=== PATIENT | female | born 1945 | race Caucasian/White ===

== ENCOUNTER 2021-10-15 17:02 | Outpatient (CLI) | payer MEDICARE, OTHER, SELFPAY ==
--- NOTE | ~2021-10-15 | US_ITS ---
EXAMINATION: US venous doppler LE EXAM DATE: 10/15/2021 17:55 INDICATION: risk of deep vein thrombosis; other specified personal risks . TECHNIQUE: Multiple grayscale, color flow and Doppler images of the lower extremity deep venous syste ms bilaterally were obtained and reviewed. There is no prior study for comparison. FINDINGS: Right side: The right common femoral, femoral and profunda veins demonstrate normal color flow, respi ratory variation, augmentation and compressibility. Compressibility, color flow confirmed within the right popliteal, posterior tibial, peroneal, and greater saphenous veins. Left side: The left common femoral, femoral and profunda veins demonstrate normal color flow, respira tory variation, augmentation and compressibility. Compressibility, color flow confirmed within the l eft popliteal, posterior tibial, peroneal, and greater saphenous veins. IMPRESSION: No lower extremity deep venous thrombosis bilaterally. Reviewed, dictated and finalized at location A. R DEVELOPER
== END 2021-10-15 17:03 | disposition home or self-care (01) ==
PROVIDERS: PCP Internal Medicine; Visit Provider Orthopaedic Surgery
DX: Z91.89 Other specified personal risk factors, not elsewhere classified (principal); R60.0 Localized edema
CPT/HCPCS: 93970

== ENCOUNTER 2022-05-20 19:19 | Emergency (ER) | payer MEDICARE, OTHER, SELFPAY ==
[2022-05-20 19:27] VITALS: BP 150/57; PULSE 72; RESP 20; TEMP 36.4; O2SAT 100
--- NOTE | 2022-05-20 19:40 | ED.URI ---
HPI - URI/Sore Throat General Chief Complaint: Upper Respiratory Infection Stated Complaint: uri Time Seen by Provider: 05/20/22 19:40 Source: patient and RN notes reviewed Mode of arrival: ambulatory Limitations: no limitations History of Present Illness HPI Narrative: 76-year-old female presented for complaint of sinus pressure, headache, and increased shortness of breath over the last day. She endorses a history of COPD but states breathing and wheezing are worse today. Also reports productive cough and fatigue. Endorses episode of vomiting about 2 days ago. She uses a rescue inhaler and has used her albuterol nebulizer today. She denies chest pain, palpitations, nausea, vomiting, fevers or chills. She denies sick contacts. Daily smoker. Hx COPD, DM, HTN, CAD. MD elicited complaint: cough Related Data Allergies Allergy/AdvReac Type Severity Reaction Status Date / Time Penicillins Allergy Mild Unverified 04/08/09 20:42 Review of Systems Review of Systems: CONSTITUTIONAL: denies chills, sweats, fever EYES: Denies visual changes, redness, or discharge ENT: Reports rhinorrhea, congestion, sinus pain CARDIOVASCULAR: Denies chest pain, palpitations, edema RESPIRATORY: Reports cough, post nasal drainage, dyspnea GASTROINTESTINAL: Denies abdominal pain, diarrhea SKIN: Denies rash or itching MUSCULOSKELETAL: denies myalgia Exam Narrative: GENERAL: Ill-appearing, nontoxic EYES: conjunctivae clear ENT: Mucous membranes moist. NECK: Supple. CHEST: Lungs diminished with scattered wheezing throughout all nicolas; No respiratory distress, speaks in full sentences. HEART: Regular rate and rhythm. No murmur heard. SKIN: Warm, dry, no rash. NEURO: Alert and oriented x3. PSYCH: Normal mood and affect Course Course Emergency Course: Patient is aware of diagnosis, understands and agrees to treatment plan. Anticipatory guidance given. Patient agrees to follow-up as directed and is aware of reasons to seek care at the emergency department. Portions of this record may have been created with voice recognition software Level of Care: Express Care Visit Vital Signs Vital signs: Vital Signs Temperature 97.5 F L 05/20/22 19:27 Pulse Rate 72 05/20/22 19:27 Respiratory Rate 20 05/20/22 19:27 Blood Pressure 150/57 H 05/20/22 19:27 Pulse Oximetry 100 05/20/22 19:27 Oxygen Delivery Room Air 05/20/22 19:27 Temperature 97.5 F L 05/20/22 19:27 Pulse Rate 72 05/20/22 19:27 Respiratory Rate 20 05/20/22 19:27 Blood Pressure 150/57 H 05/20/22 19:27 Pulse Oximetry 100 05/20/22 19:27 Oxygen Delivery Room Air 05/20/22 19:27 reviewed MDM - URI/Sore Throat MDM Narrative Medical decision making narrative: covid negative. Result reviewed with patient. Advised supportive measures Reviewed Rx's with pt. and signs/symptoms to go to the ER. Pt is appropriate for outpt treatment and f/u. Differential Diagnosis Differential diagnosis: Likely upper respiratory infection, sinusitis and viral infection Discharge Plan Discharge Clinical Impression: Bronchitis Patient Disposition: Home, Self-Care Condition: Stable Instructions: Acute Bronchitis (ED) Additional Instructions: Your Rapid COVID test was negative today. If you are symptomatic with reason to believe you have COVID-19, there is a high possibility your rapid test may not have detected the virus. You should follow appropriate guidelines regarding quarantine, hand washing, mask wearing, and social distancing You can retest in 1 to 2 days if symptoms persist Acute bronchitis can be contagious because it is usually caused by infection with a virus or bacteria. It is usually for a few days but you can be contagious for up to one week. Take medication as directed Recommend Flonase spray and Zyrtec (or Claritin/Hina) over the counter Cough syrup may cause drowsiness; avoid driving or take it at night time. Tylenol 1000mg every 8 hours a
== END 2022-05-20 20:06 | disposition home or self-care (01) ==
PROVIDERS: Emergency Provider Nurse Practitioner Family; PCP Internal Medicine
DX: J40 Bronchitis, not specified as acute or chronic (principal); Z20.822 Contact with and (suspected) exposure to COVID-19; J44.9 Chronic obstructive pulmonary disease, unspecified
CPT/HCPCS: 87426; 99213; C9803; G0463

== ENCOUNTER 2022-05-21 06:44 | Outpatient (RCR) | payer MEDICARE, OTHER, SELFPAY | END 2022-08-10 08:06 | disposition home or self-care (01) | LOC: ANHDMC 06:44 | PROVIDERS: PCP Internal Medicine; Visit Provider Internal Medicine | DX: E11.65 Type 2 diabetes mellitus with hyperglycemia (principal) | CPT/HCPCS: 99199 ==